=== PATIENT | female | born 1985 | race Two or more races ===

== ENCOUNTER 2016-07-31 17:51 | Outpatient (CLI) | payer MEDICAID ==
[2016-07-31 19:28] VITALS: BMI 27.1
[2016-07-31] MEDS ORDERED: ACETAMINOPHEN 500 MG TABLET PO ONE (19:34)
[2016-07-31 20:07] LABS: PH,URINE 6.5 (5.0-8.0); URINE BILIRUBIN NEGATIVE (NEGATIVE); URINE BLOOD 1+ (NEGATIVE); URINE GLUCOSE (UA) NEGATIVE (NEGATIVE); URINE LEUKOCYTE ESTERASE NEGATIVE (NEGATIVE); URINE NITRITE NEGATIVE (NEGATIVE); URINE PROTEIN NEGATIVE (NEGATIVE); URINE UROBILINOGEN NORMAL (0-1 mg/dl)
[2016-07-31 20:29] LABS: URINE APPEARANCE CLEAR; URINE COLOR YELLOW
[2016-07-31 20:33] LABS: URINE AMORPHOUS SEDIMENT MODERATE; URINE BACTERIA 1+; URINE MUCUS 1+
== END 2016-07-31 20:15 | disposition home or self-care (01) ==
LOC: FBCOUT 17:51 → FBC 17:52 → FBCOUT 20:15
PROVIDERS: ATTEND Family Medicine
DX: O47.9 False labor, unspecified (principal); Z3A.00 Weeks of gestation of pregnancy not specified
CPT/HCPCS: 81001; 59025; 81002; A9270; G0463

== ENCOUNTER 2016-08-01 03:38 | Inpatient (IN) | payer MEDICAID ==
[2016-08-01] MEDS ORDERED: OXYCODONE HCL 5 MG TABLET PO ONE ×2 (03:54→19:49)
[2016-08-01] MEDS ORDERED: IV START KIT ONE (03:57)
[2016-08-01] MEDS ORDERED: LACTATED RINGERS 1,000 ML IV SCH (04:00)
[2016-08-01 04:34] LABS: ABSOLUTE NEUTROPHIL COUNT 8.2 K/mm3 (1.8-7.7); BASO % 0.2 % (0.2-1.0); EOS % 0.3 % (0.9-2.9); HEMATOCRIT 31.6 % (37.0-47.0); HEMOGLOBIN 10.8 gm/l (12.0-16.0); IMM NEUT # 0.1 K/mm3 (0-0.2); IMM NEUT% 1.1 % (0-1); LYMPH # 1.3 (1.0-4.8); LYMPH % 12.5 % (15-45); MEAN CELL VOLUME 91.6 fl (81.0-99.0); MEAN CORPUSCULAR HEMOGLOBIN 31.3 pg (27.0-31.0); MEAN CORPUSCULAR HGB CONC 34.2 g/dl (33.0-37.0); MEAN PLATELET VOLUME 10.9 fl (7.4-10.4); MONO # 0.8 (0.0-0.8); NEUT % 77.9 % (43-75); PLATELET COUNT 212 K/mm3 (130-400); RED CELL DISTRIBUTION WIDTH 13.1 % (11.5-14.5); URINE BILIRUBIN NEGATIVE (NEGATIVE); URINE BLOOD NEGATIVE (NEGATIVE); URINE GLUCOSE (UA) NEGATIVE (NEGATIVE); URINE LEUKOCYTE ESTERASE NEGATIVE (NEGATIVE); URINE NITRITE NEGATIVE (NEGATIVE); URINE PROTEIN NEGATIVE (NEGATIVE); URINE UROBILINOGEN NORMAL (0-1 mg/dl)
[2016-08-01 04:35] LABS: URINE APPEARANCE CLEAR; URINE COLOR YELLOW
[2016-08-01 04:41] LABS: URINE WBC 0-1 /hpf
[2016-08-01 04:42] LABS: URINE BACTERIA TRACE; URINE MUCUS TRACE
[2016-08-01 04:50] LABS: ALB/GLOB RATIO 1.1 (>1.0); ALBUMIN 3.3 gm/dL (3.5-5.7); CALCIUM 8.5 mg/dL (8.6-10.3)
[2016-08-01] MEDS: ONDANSETRON 4 MG/2ML 2 ML VIAL IV PRN (05:29)
[2016-08-01] MEDS: MORPHINE SULFATE 2 MG/ML SYRINGE IV PRN ×2 (05:29→07:35)
[2016-08-01] MEDS: LACTATED RINGERS 1,000 ML IV SCH ×4 (05:37→21:16)
--- NOTE | 2016-08-01 06:09 | PCMAN ---
OB Admission Note - History : 4 Term: 3 : 0 Abortions (S&E): 0 Livin Gestational Age (weeks): 35 Days (#/7): 1 Admit Cervical Dilation:: 1cm Membrane Status: Intact Contractions: Yes Contraction Frequency:: irregular Heart Rate:: 145 Status:: reassuring EFW:: 5 Lbs Summary of Course:: Hx of abnl Quad but cfDNA normal, level 2 u/s wnl except for isolated cardiac foci - Labs Blood Type: O (+) positive Hct/Hgb:: 10.8 Rubella Status: Immune GBS Status: Unknown Abnormal Labs: Abnormal Genetic Screening (07/30/16 UA with blood and trace leuk est) - Review of Systems 12 point ROS negative, except for excruciating right-sided flank pain for 2 days that wraps around the front, nauseous with pain and vomiting - Physical Exam General: Mild Distress Lungs: Clear to Auscultation Bilaterally Cardiovascular: Regular Rate and Rhythm Abdomen: Other (gravid, non-tender back: mild R CVAT) - Problems (1) Flank pain, acute Status: Acute Code: R10.9 Assessment/Plan: 31 yo @ 35 1/7 wks with unremarkable course except for a positive Quad screen followed by normal cfDNA testing and normal level 2 ultrasound exept for isolated finding of cardiac foci who comes in for severe R sided flank pain. She was diagnosed with a UTI 2 days ago in clinic and was given Keflex which she is has mostly taken. Urine culture results are still pending. She is afebrile with a negative WBC count and unremarkable admission labs. GBS was obtained, results are pending. FWB is reassuring and she is not in labor but presents with occasional contractions likely due to pain. Kidney ultrasound was obtained and did not show any kidney stone but moderate right hydronephrosis and a dilated proximal right ureter. -will admit for hydration and pain control with IV morphine and zofran
--- NOTE | 2016-08-01 07:18 | US ---
EXAMINATION: Renal ultrasound including bladder. Technique: A retroperitoneal ultrasound was performed. The kidneys ureters and bladder were evaluated. Prevoid volume postvoid volumes of the bladder were obtained. Clinical indication:Right and see. Right-sided back pain. Comparisons: None FINDINGS: Right kidney: Size: 11.4 x 6.0 x 6.8 centimeters. Cortical thickness: 8 millimeters Resistive index: 0.62 There is moderate right hydronephrosis extending into the proximal right ureter. Pelvic caliectasis is noted as well. There is no adjacent fluid. Left kidney: Size: 11.0 x 5.8 x 6.2 centimeters. Cortical thickness: 9 millimeters Resistive index: 0.62 No mass or hydronephrosis is identified. Echogenicity and contours are normal. Bladder: Empty. Patient voided prior to the exam. No gross distal ureteral dilatation is seen. IMPRESSION: 1. Moderate right hydronephrosis. 2. Sonographically normal left kidney. 3. Decompressed bladder. Findings were communicated by [facility] to the [facility] at: 5:06 AM 08/01/2016
[2016-08-01] MEDS ORDERED: OXYCODONE HCL 5 MG TABLET PO PRN (08:20)
--- NOTE | 2016-08-01 09:41 | PDOC36 ---
Provider Note Subject: MD Interval Note Note: Patient admitted for pain control, R flank pain, US shows moderate R hydronephrosis. Being treated for UTI with Keflex, awaiting culture results. Patient has now received Morphine IV as well as Oxycodone PO x 2. Last dose of Oxycodone 10mg was given 1 hr ago and patient states pain is unchanged, rating 7 /10. Afebrile. No vomiting at this time. No appetite. 31 yo at 35 1/7 wks, R flank pain, pyelonephritis vs kidney stone? - will start Rocephin 1gm IV Q24 hrs - will start Flomax - monitor closely for improved pain, attempting to switch to PO pain meds today.
[2016-08-01] MEDS ORDERED: CEPHALEXIN 500 MG CAPSULE PO SCH (10:00)
[2016-08-01] MEDS ORDERED: CEFTRIAXONE 1 GRAM DUPLEX 50 ML IV ONE (10:13)
[2016-08-01] MEDS: TAMSULOSIN HCL 0.4 MG CAPSULE.DR PO SCH (10:20)
[2016-08-01] MEDS: CEFTRIAXONE 1 GRAM DUPLEX 1 G in Premix (D5W) 50 ml 1 EACH IV SCH (10:22)
[2016-08-01] MEDS: OXYCODONE HCL 5 MG TABLET PO PRN ×2 (11:51→16:22)
[2016-08-01] MEDS: OXYCODONE/ACETAMINOPHEN 5/325 MG TABLET PO PRN ×3 (12:33→21:16)
--- NOTE | 2016-08-01 17:29 | PDOC36 ---
Provider Note Subject: MD Interval Note Note: Patient states pain is still uncontrolled. Receiving Oxycodone 5mg and Percocet 10mg/650 every 4 hours. Has no appetite to eat, c/o nausea when pain is severe. Ucx received and shows 10K col of GBS. Patient switched to Rocephin 1gm IV Q24 and given Flomax today. Remains afebrile. Since pain is still uncontrolled and patient not taking much PO, will keep her overnight. Patient will be moved to Med Surg. Ok for NST Q4 hrs.
[2016-08-01 19:41] VITALS: BMI 27.6
[2016-08-01] MEDS ORDERED: PUMP TUBING ONE (19:51)
[2016-08-02] MEDS: OXYCODONE/ACETAMINOPHEN 5/325 MG TABLET PO PRN ×5 (02:14→23:02)
[2016-08-02] MEDS: LACTATED RINGERS 1,000 ML IV SCH ×7 (02:17→23:03)
[2016-08-02] MEDS: MORPHINE SULFATE 2 MG/ML SYRINGE IV PRN ×4 (05:31→15:17)
[2016-08-02] MEDS: TAMSULOSIN HCL 0.4 MG CAPSULE.DR PO SCH (08:35)
[2016-08-02] MEDS: CEFTRIAXONE 1 GRAM DUPLEX 1 G in Premix (D5W) 50 ml 1 EACH IV SCH (09:54)
[2016-08-02] MEDS: ONDANSETRON 4 MG/2ML 2 ML VIAL IV PRN (10:13)
--- NOTE | 2016-08-02 10:43 | PDOC36 ---
Provider Note Subject: Progress Note Note: Patient reports pain still uncontrolled, taking meds around the clock, sometimes requesting next dose at 3.5 hrs instead of 4. Still with nausea when pain is severe. Not able to eat much. Afebrile. Urine is being strained. Last Vital Signs Temp 98.3 F 08/02/16 07:23 Pulse 106 08/02/16 07:23 Resp 16 08/02/16 07:23 BP 108/64 08/02/16 07:23 Pulse Ox 97 08/02/16 07:23 Patient c/o pain localized to R flank. Unable to lie on that side. NSTs Q4 hrs have been reassuring. A/P: 31 y/o at 35 2/7 wks, uncontrolled flank pain, likely kidney stone - urine is being strained - on Flomax, IVF - Zofran PRN for nausea - will plan to consult [facility] for recommendations.
--- NOTE | 2016-08-02 12:37 | CT ---
Examination: Noncontrast CT scans of the Abdomen and Pelvis Clinical indication: Severe right hydronephrosis. 35 weeks . Comparison: Ultrasound dated 08/01/2016. Technique: Multidetector CT scanner was utilized. No oral or intravenous contrast was administered. Axial images were acquired from just above the domes of the diaphragm to the iliac crest. A CT scan of the pelvis was carried out from the iliac crest to the initial tuberosities. Sagittal, axial and coronal stacked 5 mm images were reviewed. Patient is a Slovak speaker. The risks versus benefits were discussed via japanese interpreter. Consent was obtained. Known . Significant dose reduction techniques were utilized. This may limit resolution. Findings: Abdomen CT (noncontrast): The lung bases are clear and are without mass or pleural effusion. The liver is unremarkable. The gallbladder is within normal limits. There is no evidence of biliary obstruction. The spleen size and attenuation are within normal limits. The pancreas is normal in size and contours. No inflammatory stranding is identified. The pancreatic duct is unremarkable. The adrenals are unremarkable. There is moderate to severe right hydronephrosis and right hydroureter. There are punctate calcifications at the cortical medullary junction in the interpolar distribution of the kidney and at the lower pole. There is severe hydroureter of the proximal aspect with dilatation to the level of the sacral promontory. There is considerable coaptation of the distal right ureter between the uterus and right iliopsoas muscle. The ureter is difficult to track more inferiorly however there is a calculus in the right. Median distribution measuring 0.6 x 0.7 cm in size. This may be intraureteral. There is also moderate left pelvic caliectasis with a prominent proximal left ureter. There is also coaptation of the distal left ureter between the uterus and iliopsoas muscle. No distal left ureteral calculi are identified. No bladder calculi are seen. The abdominal aorta unremarkable. There is no retroperitoneal adenopathy identified. The stomach is unremarkable. The visualized segments of small and large bowel are within normal limits. The osseous structures exhibit no displaced fracture. No lytic or blastic lesions are identified. Pelvic CT findings (noncontrast): The bladder contours are within normal limits. No bladder calculi are identified. There is a gravid uterus. There is a fetus in cephalic presentation. No gross adnexal masses are identified. No adenopathy is identified. The distal abdominal aorta and iliac vessels are within normal limits. The visualized segments of small and large bowel are unremarkable. No inflammatory stranding is seen adjacent to the colon/cecum. The appendix is noninflamed. It is retrocecal and extends cephalad and closely abuts the posterior right kidney adjacent to the right lobe of the liver. The distal tip appears to terminate within the right adrenal fossa. No displaced fractures are identified. There are no gross osteolytic or blastic lesions. The overlying soft tissues are unremarkable. IMPRESSION: 1. Moderate to severe right hydronephrosis. There is perinephric stranding and right nephrolithiasis. There is considerable compression of the distal right ureter between the gravid uterus and right iliopsoas muscle. Distally however there is a suspected intraureteral calculus measuring 0.7 x 0.6 cm. This is just proximal to what appears to be the right ureterovesicular junction. 2. Mild left hydronephrosis and hydroureter. There is also coaptation of the distal left ureter which when a gravid uterus and left ileus psoas muscle. 3. Fetus in cephalic presentation. 4. Noninflamed appendix extending posterior and cephalad as described. The findings were uploaded to the electronic medical record for review at approximately 12:37 PM 08/02/2016
[2016-08-02] MEDS ORDERED: SODIUM CHLORIDE 0.9% FLUSH 10 ML ONE (17:06)
[2016-08-02] MEDS ORDERED: IV START KIT ONE (17:06)
[2016-08-02] MEDS ORDERED: HYDROMORPHONE HCL 2 MG/ML SYRINGE IV PRN (19:10)
--- NOTE | 2016-08-02 19:18 | PDOC36 ---
Provider Note Subject: Progress Note Note: Non contrast CT Abd/Pelvis obtained, shows 7mm x 6 mm calculi proximal to ureterovesicular junction. Discussed findings with Dr. Siegel. He advised to make patient NPO after midnight in preparation for a procedure tomorrow. Will continue Rocephin. Discussed plan with patient this evening and she agrees with plan. Will change IV pain med to Dilaudid as Morphine was not controlling her pain.
[2016-08-03] MEDS: LACTATED RINGERS 1,000 ML IV SCH ×4 (02:40→14:51)
[2016-08-03] MEDS: TAMSULOSIN HCL 0.4 MG CAPSULE.DR PO SCH (08:50)
[2016-08-03] MEDS ORDERED: CEFTRIAXONE SODIUM IV SCH (09:45)
[2016-08-03] MEDS ORDERED: NS 0.9% IV SCH (09:45)
[2016-08-03] MEDS ORDERED: LACTATED RINGERS 1,000 ML ONE (10:48)
[2016-08-03] MEDS ORDERED: FENTANYL 5 ML ONE (11:42)
[2016-08-03] MEDS ORDERED: MIDAZOLAM HCL 1 MG/ML 2ML VIAL ONE (11:42)
[2016-08-03] MEDS ORDERED: IOPAMIDOL 300 (61%) 30 ML SDV ONE (12:16)
[2016-08-03] MEDS ORDERED: SODIUM CHLORIDE 0.9% 50 ML ONE (12:16)
[2016-08-03] MEDS ORDERED: ATROPINE SULFATE 0.4 MG/1 ML VIAL IV PRN (13:16)
[2016-08-03] MEDS ORDERED: ONDANSETRON 4 MG/2ML 2 ML VIAL IV PRN (13:16)
[2016-08-03] MEDS ORDERED: MEPERIDINE 25 MG/ML SYRINGE IV PRN (13:16)
[2016-08-03] MEDS ORDERED: FENTANYL 100 MCG/2 ML VIAL IV PRN (13:16)
[2016-08-03] MEDS ORDERED: NALOXONE HCL 0.4 MG/ML VIAL IV PRN (13:16)
[2016-08-03] MEDS ORDERED: HYDROMORPHONE HCL 1 MG/ML SYRINGE IV PRN (13:16)
[2016-08-03] MEDS ORDERED: SODIUM CHLORIDE 0.9% FLUSH 10 ML ONE (13:19)
[2016-08-03] MEDS ORDERED: PROPOFOL 20 ML IV ONE (13:19)
[2016-08-03] MEDS ORDERED: LIDOCAINE 2% (MULTI DOSE) 10 ML VIAL ONE (13:19)
[2016-08-03] MEDS ORDERED: SUCCINYLCHOLINE CHL 20 MG/ML DOSE ONE (13:19)
[2016-08-03] MEDS ORDERED: EPHEDRINE SULFATE 50 MG/ML 1ML VIAL ONE (13:19)
[2016-08-03] MEDS ORDERED: ROCURONIUM BROMIDE 10 MG/ML DOSE IV ONE (13:19)
[2016-08-03] MEDS ORDERED: LACTATED RINGERS 1,000 ML IV SCH (13:30)
--- NOTE | 2016-08-03 14:14 | RAD ---
RETROGRADE UROGRAM HISTORY: Intraoperative fluoroscopy COMPARISONS: CT abdomen and pelvis 08/02/2016 FINDINGS: 3 overhead fluoroscopic images are provided for review. These images demonstrate retrograde cannulization and opacification of the right ureter. Initial filling image demonstrates filling defect inferior right ureter. Differential considerations would include stone or air bubble. By report stone was removed. Final 2 images demonstrate double ended pigtail catheter within the right collecting system. Fluoroscopy time: 36.6 seconds IMPRESSION: Intraoperative fluoroscopy as above. Please see urologist note regarding the procedure for further details.
--- NOTE | 2016-08-03 14:41 | OP ---
WENDY RICE [id number] DATE OF OPERATION: August 03, 2016 SURGEON: Keaton Siegel M.D. [facility] COORDINATOR: None. ANESTHESIA: General. PREOPERATIVE DIAGNOSES: 1. Right ureteral calculus with renal colic and hydronephrosis. 2. at 35 weeks. POSTOPERATIVE DIAGNOSIS: 1. Right ureteral calculus with renal colic and hydronephrosis. 2. at 35 weeks. PROCEDURE: 1. CYSTOSCOPY. 2. RIGHT RETROGRADE UROGRAPHY. 3. RIGHT URETEROSCOPIC HOLMIUM LASER LITHOTRIPSY. 4. RIGHT URETERAL STENT. SPECIMENS: Fragments of right ureteral calculus. INDICATIONS: A 31-year-old woman at 35 weeks who was admitted by her obstetrical service for right-sided flank pain and abdominal discomfort on August 01, 2016. The flank discomfort persisted and there was no evidence of urinary tract infection. Urinalysis only showed a trace of hematuria. Ultrasound predictably showed some dilatation of the right upper tract which is quite nonspecific at this point in . Because of persistence of pain and need for continuing pain medication, limited CT scan was done and the evidence suggested a distal right ureteral calculus, and she presents now for surgical intervention. FINDINGS: Patient is in advanced . Bladder landry are displaced as predicted by her gravid status. The ureteral orifices were normally disposed. Retrograde on the right showed the stone consistent with a 7 to 8 mm calculus just outside the right intramural ureter with proximal hydroureteronephrosis. The stone fragmented easily, and we were able to remove it in its entirety. PROCEDURE: The patient was identified and brought to the operating room where general anesthesia was induced and then she was placed in a dorsal lithotomy position with the right leg low and the left leg relatively elevated, as well as a right-sided bump to decompress the vena cava. The genital region was prepared and draped sterilely. We introduced a 21 [place] rigid cystoscope and used a cone tip catheter to inject contrast retrograde using fluoroscopy set at low dose. The problem was identified immediately. We then passed a floppy tip wire which we were able to negotiate past the stone to the level of the kidney. The cystoscope was withdrawn and a semi-rigid ureteroscope introduced with saline as an irrigant. A 375 micron holmium laser fiber was used at the rate of 0.8 joules and 10 hertz to fragment the stone with a total energy of 0.078 kilojoules being used. The fragments were removed with an open ended basket. We then removed the ureteroscope and back threaded the wire through the cystoscope and passed a 22 cm 6 [place] Polaris type stent to decompress the ureter. The cystoscope was withdrawn and a temporary 20 [place] Lomas catheter was passed and left to gravity drainage with 10 mL of water in its balloon to observe for hematuria. Estimated blood loss less than 10 mL. No early complications. Patient tolerated the procedure well and was taken in stable condition to the postanesthesia room. cc: Keaton Siegel M.D. Jalil Salgdao PA-C
--- NOTE | 2016-08-03 17:36 | PDOC39B ---
Hospital Course: ADMIT DATE: 08/01/16 DISCHARGE DATE: 08/03/16 ADMISSION DIAGNOSES: Right Flank Pain DISCHARGE DIAGNOSES: Right Sided Ureteral Calculus with Hydronephrosis PROCEDURES/EVENTS: Cystoscopy with retrograde urography Laser Lithotripsy and placement of a right ureteral stent HOSPITAL COURSE: 31 yo admitted @ 35 1/7 weeks with severe right sided flank pain. She was diagnosed with a UTI on 07/30/16 in clinic and was given Keflex which she had mostly taken. Urine culture results were negative. She was afebrile with a negative WBC count and unremarkable admission labs. GBS was obtained, results and is positive. Kidney ultrasound was obtained and did show moderate right hydronephrosis and a dilated proximal right ureter. Dr. Siegel was consulted and a CT without contrast was ordered which showed a 7 mm right sided stone obstructing the ureter causing moderate to severe hydronephrosis. The patient was taken to the cystoscopy suite where the stone was removed via lithotripsy and a temporary stent placed. The patients postoperative course has been unremarkable. well being has been reassuring throughout her stay and at the time of discharge the patient was able to ambulate, eat solid foods and void independently. - Physical Exam Vital Signs: Temp Pulse Resp BP Pulse Ox 98.2 F 90 20 102/60 96 08/03/16 15:00 08/03/16 15:00 08/03/16 15:00 08/03/16 15:00 08/03/16 15:00 General: Afebrile Psych/Mental Status: Mood/Affect Appropriate, Judgment/Insight Intact, Bonding Well Neurological: Alert, Oriented x 4 Lungs: Clear to Auscultation Bilaterally, Normal Air Movement Cardiovascular: Regular Rate and Rhythm Fundus: Other (Gravid) Abdomen: Normal Bowel Sounds Skin: Normal Color - Discharge Diagnosis (1) Term Status: Acute Assessment/Plan: FHTs 150s and reactive. No contractions. SVE: C/T/H Needs to followup with [facility] in 2-3 days. (2) Urolithiasis Status: Acute Assessment/Plan: Stable, patient with a right sided stent after lithotripsy, feeling much better. Followup with Dr. Siegel in 1 week for removal of stent Will send home with pain meds, no ABX required (Urine Culture from clinic was negative) - Discharge Plan Condition: Stable Disposition: Home Prescriptions: Oxycodone HCl/Acetaminophen [PERCOCET 5/325 MG TABLET (SHF)] 2 tab PO Q4H PRN # 30 tablet PRN Reason: Pain Follow-Up: Keaton Siegel MD [Provisional Staff] - (Provider's office will be in contact with you to schedule an appointment) [facility] [Provider Group] - In 2-3 days
[2016-08-03 17:47] VITALS: BP 90/46
[2016-08-04] MEDS ORDERED: CEFTRIAXONE SODIUM 1 G in NS 0.9% (MINI-BAG PLUS) 50 ML IV SCH (10:00)
[2016-08-06 14:39] LABS: CALCULUS NUMBER 3 (()); CALCULUS TOTAL WEIGHT 24 mg (())
== END 2016-08-03 18:30 | disposition home or self-care (01) | DRG 781 ==
LOC: FBCOUT 03:38 → FBC 03:38 → FBCOUT 05:15 → MS 17:25 → OBSVTOIN 17:25 → MS 19:15
PROVIDERS: ADMIT Family Medicine; ATTEND Family Medicine
PROC: BT0B1ZZ Plain Radiography of Bladder and Urethra using Low Osmolar Contrast (ICD-10-PCS; principal; 2016-08-03)
PROC: 0TC33ZZ Extirpation of Matter from Right Kidney Pelvis, Percutaneous Approach (ICD-10-PCS; 2016-08-03)
DX: O26.833 Pregnancy related renal disease, third trimester (principal); N13.6 Pyonephrosis; N39.0 Urinary tract infection, site not specified; N28.89 Other specified disorders of kidney and ureter; O99.820 Streptococcus B carrier state complicating pregnancy; Z3A.35 35 weeks gestation of pregnancy

== ENCOUNTER 2016-08-24 04:19 | Inpatient (IN) | payer MEDICAID ==
[2016-08-24] MEDS ORDERED: OXYTOCIN IN LR 500 ML IV ONE (05:43)
[2016-08-24] MEDS ORDERED: LACTATED RINGERS 1,000 ML IV PRN (05:43)
[2016-08-24] MEDS ORDERED: LIDOCAINE 1% (PRES FREE) 30 ML VIAL ONE (05:47)
[2016-08-24] MEDS ORDERED: IV START KIT ONE (05:47)
[2016-08-24] MEDS ORDERED: OXYTOCIN 10 UNITS/ML VIAL ONE (05:47)
[2016-08-24] MEDS ORDERED: MINERAL OIL 25 ML BOT ONE (05:47)
[2016-08-24] MEDS ORDERED: LIDOCAINE Viscous 2% 15 ML UDCUP ONE (05:47)
[2016-08-24] MEDS ORDERED: PUMP TUBING ONE (05:47)
[2016-08-24] MEDS ORDERED: NS IV ONE (05:49)
[2016-08-24] MEDS ORDERED: PENICILLIN IV ONE (05:49)
[2016-08-24] MEDS ORDERED: PENICILLIN G POTASSIUM 5 MMU VIAL ONE (05:51)
[2016-08-24] MEDS ORDERED: NS 0.9% (MINI-BAG PLUS) 100 ML IV ONE (05:53)
[2016-08-24] MEDS ORDERED: PENICILLIN G POTASSIUM 5 MMU in NS 0.9% (MINI-BAG PLUS) 100 ML IV ONE (06:20)
[2016-08-24 06:29] LABS: HEMATOCRIT 33.8 % (37.0-47.0); HEMOGLOBIN 11.5 gm/l (12.0-16.0); MEAN CELL VOLUME 91.4 fl (81.0-99.0); MEAN CORPUSCULAR HEMOGLOBIN 31.1 pg (27.0-31.0); RED CELL DISTRIBUTION WIDTH 13.1 % (11.5-14.5)
[2016-08-24] MEDS ORDERED: LACTATED RINGERS 1,000 ML IV SCH (06:30)
[2016-08-24 06:40] VITALS: BMI 24.6
[2016-08-24] MEDS ORDERED: LANOLIN 50 APPLIC/7G TUBE TP PRN (08:08)
[2016-08-24] MEDS ORDERED: HYDROCODONE/ACETAMINOPHEN 5/325MG TABLET PO PRN (08:08)
[2016-08-24] MEDS ORDERED: DOCUSATE SODIUM 100 MG CAPSULE PO PRN (08:08)
[2016-08-24] MEDS ORDERED: BENZOCAINE/MENTHOL 60 APPLIC/BOT TP PRN (08:08)
--- NOTE | 2016-08-24 08:31 | PCMAN ---
OB Admission Note - History : 4 Term: 3 : 0 Abortions (S&E): 0 Livin EDC:: 09/04/16 Gestational Age (weeks): 38 Days (#/7): 3 Admit Cervical Dilation:: 5 Admit Cervical Effacement (%):: 100 Admit Station:: -1 Membrane Status: Ruptured Rupture (Date): 08/24/16 Rupture (Time): 02:40 Membranes Comment:: clear Labor Onset (Date): 08/24/16 Labor Onset (Time): 02:40 Contractions: Yes Contraction Frequency:: Q2 mins Summary of Course:: 31 yo (now para 4) at 38 3/7 wk, admitted in active labor after SROM. complicated by renal stone requiring lithotripsy and stent. Patient with no pain after procedure. Also had EIF on anatomy scan and was referred to [facility]. US was unremarkable besides EIF. cfDNA was normal. GBS was positive on Ucx. PMHx: kidney stone PSHx: lithotripsy and stent SocHx: denies tobacco, ETOH or illicit drugs Meds: PNV OBHx: 2011 40 wk (6lb 8oz) 2007 40 wk (7 lb) 2003 40 wk (7 lb 2 oz) - Labs Blood Type: O (+) positive Hct/Hgb:: 35.0/11.6 Rubella Status: Immune GBS Status: Positive Abnormal Labs: None Other Labs:: Antibody neg HIV NR HBSAg NR RPR Neg GC/CT not detected 1hr 112 cfDNA normal Pap normal - Review of Systems Denies CP, SOB, FREEMAN, RUQ pain, no visual changes. Denies pain from kidney stone. 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 Figueroa ) No complications except for inadequate IAP for GBS Admit for routine PP care 48 hr obs for GBS for baby Patient desires BTL but consent was not obtained prior to delivery
--- NOTE | 2016-08-24 08:35 | PCMDEL ---
Delivery Note - Labor 1st stage (hr/min):: 4 hr 48 min 2nd stage (hr/min):: 5 min 3rd stage (hr/min):: 3 min Total (hr/min):: 4 hr 53 min Pushed (hr/min):: 5 min - Delivery Delivery (Date): 08/24/16 Delivery (Time): 07:33 Infant Gender: Male Presentation: Cephalic Position: OA Umbilical Cord: 3 Vessel, Nuchal Cord (reduced on perineum) Delayed Cord Clamping:: < 1 min 1 Minute Total: 9 5 Minute Total: 9 Placenta:: 07:36 EBL:: 100 mL Perineum:: intact Suture:: none Anesthesia/Meds:: none Length ROM:: 4 hr 53 min Comments:: Precipitous of NB male, apgars 9/9, intact perineum. Delivered by Dr. Figueroa. Nuchal cord x 1, reduced on perineum. Infant handed to mom, cord clamped and cut. Cord blood obtained. Placenta delivered and grossly normal. No lacerations. QBL 100 mL.
[2016-08-24] MEDS ORDERED: PENICILLIN IV SCH (10:00)
[2016-08-24] MEDS ORDERED: NS IV SCH (10:00)
[2016-08-24] MEDS ORDERED: PENICILLIN G 3 MIL UNIT PREMIX 3 MMU in Premix (D5W) 50 ml 1 EACH IV SCH (10:00)
[2016-08-24] MEDS: IBUPROFEN 800 MG TABLET PO PRN ×3 (10:28→22:22)
[2016-08-25] MEDS ORDERED: LACTATED RINGERS 1,000 ML ONE (03:51)
[2016-08-25] MEDS ORDERED: LACTATED RINGERS 1,000 ML IV PRN (04:00)
[2016-08-25 06:59] LABS: HEMATOCRIT 30.9 % (37.0-47.0); HEMOGLOBIN 10.1 gm/l (12.0-16.0)
--- NOTE | 2016-08-25 13:40 | PDOC44 ---
- Subjective Day: 1 Reports Pain Tolerable - Objective Temp Pulse Resp BP Pulse Ox 98.1 F 63 16 102/56 08/25/16 07:39 08/25/16 07:39 08/25/16 07:39 08/25/16 07:39 Lab Results 08/25/16 06:10 Hgb 10.1 L Hct 30.9 L Current Medications Generic Name Dose Route Start Last Admin Trade Name Freq PRN Reason Stop Dose Admin Acetaminophen/Hydrocodone Bitart 1 - 2 tab 08/24/16 08:08 08/25/16 02:04 [place] 5/325 PO 1 tab Q4H PRN Administration Pain (Moderate) Benzocaine/Menthol 1 applic 08/24/16 08:08 Dermoplast TP PRN PRN Patient Comfort Docusate Sodium 100 mg 08/24/16 08:08 Colace PO DAILY PRN Comfort Emollient Ointment 1 applic 08/24/16 08:08 Ltg-Y-Pazgxi TP PRN PRN sore nipples Lactated Ringer's 1,000 mls @ 100 mls/hr 08/25/16 04:00 08/25/16 04:00 Lactated Ringers IV 100 mls/hr .Q10H PRN Administration npo Ibuprofen 800 mg 08/24/16 08:08 08/24/16 22:22 Motrin PO 800 mg Q6H PRN Administration Pain (Mild) Sodium Chloride 10 ml 08/24/16 05:43 08/24/16 07:15 Normal Saline 10ml Flush IV 10 ml PRN PRN Administration IV Flush Sodium Chloride 10 ml 08/24/16 09:00 08/25/16 06:38 Normal Saline 10ml Flush IV Not Given Q8HR JUANA - Physical Exam General: Afebrile Psych/Mental Status: Mood/Affect Appropriate, Judgment/Insight Intact, Bonding Well Neurological: Grossly Intact Lungs: Clear to Auscultation Bilaterally Cardiovascular: Regular Rate and Rhythm Fundus: Firm, Below Umbilicus Skin: Normal Color - Problems:Assessment/Plan (1) GBS carrier Status: Acute Assessment/Plan: Only received one dose of PCN prior to delivery Will keep baby for 48 hr obs (2) (normal spontaneous vaginal delivery) Status: Acute Assessment/Plan: Patient came in in active labor, and went on to have a rapid (by Dr. Figueroa ) No complications except for inadequate IAP for GBS Continue routine PP care 48 hr obs for GBS for baby Patient desires BTL but consent was not obtained prior to delivery, continue to wait for clearance. Pt may be able to have BTL tomorrow in AM but doubt it. Christine Raza with Finance Dept is continuing to work on this and will let us know. Disposition: Stable
[2016-08-25] MEDS: IBUPROFEN 800 MG TABLET PO PRN (18:13)
[2016-08-26] MEDS: IBUPROFEN 800 MG TABLET PO PRN (03:18)
[2016-08-26] MEDS ORDERED: MORPHINE SULFATE 2 MG/ML SYRINGE IV PRN (05:13)
[2016-08-26] MEDS ORDERED: LACTATED RINGERS 1,000 ML IV SCH (05:15)
[2016-08-26 06:55] LABS: HEMATOCRIT 31.6 % (37.0-47.0); HEMOGLOBIN 10.6 gm/l (12.0-16.0); MEAN CELL VOLUME 91.3 fl (81.0-99.0); MEAN CORPUSCULAR HEMOGLOBIN 30.6 pg (27.0-31.0); MEAN CORPUSCULAR HGB CONC 33.5 g/dl (33.0-37.0); RED CELL DISTRIBUTION WIDTH 13.5 % (11.5-14.5)
--- NOTE | 2016-08-26 10:38 | PDOC36 ---
Provider Note Note: cc: Preop H&P HPI: 31 y.o. year old G4 now [id number] PPD#2 here for a PP BTL REVIEW OF SYSTEMS GENERAL:~ No fever or headache EYES:~ No double or blurry vision. CARDIOVASCULAR:~ No chest pain. RESPIRATORY:~ No severe shortness of breath or cough. GASTROINTESTINAL:~ No nausea or vomiting or right upper quadrant pain.~ PSYCHIATRIC:~ No anxiety or depression. PROBLEMS H/O Kidney stones requiring Lithotripsy and Stent during PSH Past Surgical History Procedure Laterality Date Cystoscopy w/ laser lithotripsy Right 08/03/16 [facility], Keaton Siegel MD Cystoscopy w/ ureteral stent placement Right 08/03/16 [facility], Keaton Siegel MD SOC HX Reports that she has never smoked. She has never used smokeless tobacco. She reports that she does not drink alcohol or use illicit drugs. ALL No Known Allergies MEDICATIONS ~ multivitamin (ULTRATABS) tablet, Take 1 tablet by mouth daily., Disp : 30 each, Rfl: 0 PHYSICAL EXAMINATION VITAL SIGNS:~ AFVSS Estimated body mass index is 27.24 GENERAL:~ No distress CARDIOVASCULAR:~ Regular rate and rhythm, no murmur, JVD or pedal edema. RESPIRATORY:~ Clear to auscultation bilaterally, respiratory effort is nonlabored at rest. GASTROINTESTINAL:~ Fundus is firm and at umbilicus NEUROLOGIC:~ Deep tendon reflexes are 2+ in the knees.~ Cranial nerves II-XII are grossly intact. PSYCHIATRIC:~ Alert and oriented x3, judgement and memory is intact, mood is pleasant. LABS & STUDIES Hgb 10.6 ASSESSMENT 31 y.o. year old here for BTL PLAN I reviewed the risks and benefits of, and alternatives to, a bilateral tubal ligation (BTL). She understands that this is considered permanent sterilization , and that equally effective but reversible methods exist. These methods have previously been discussed with her. She understands that a BTL is not 100% effective. There is a failure risk of approximately 1-3% over 10 years. She understands that if she becomes after a BTL she is at an increased risk of having an ectopic, or tubal , which can be dangerous and even deadly. I reviewed the importance of taking a test should she have any future signs or symptoms of . I also reviewed the age-related risk of regret (approximately 20% for women under age 30, or 6% for those 30 or older). Further, we discussed the surgical risks including risk of bleeding ( she states that she would accept blood products if medically necessary; we reviewed R/B), risk of infection (wound infection - possibly leading to dehiscence, or pelvic infection), as well as risk of damage to surrounding organs/tissues (including, but not limited to, bladder, bowel, ureters, uterus, ovaries, tubes, blood vessels and nerves). We reviewed that any of these surgical risks could necessitate further treatment or surgeries. She understands that there is a risk of conversion to laparotomy. She voices understanding and wishes to proceed. All questions were answered. The patient provided verbal and written consent. Fer Ramesh MD MPH
[2016-08-26] MEDS ORDERED: SPINAL PROCEDURAL TRAY 1 EACH ONE (10:39)
[2016-08-26] MEDS ORDERED: BUPIVACAINE 0.75% SPINAL AMPUL 2 ML ONE (11:07)
[2016-08-26] MEDS ORDERED: BENZOCAINE/MENTHOL 60 APPLIC/BOT TP PRN (12:18)
[2016-08-26] MEDS ORDERED: MAGNESIUM HYDROXIDE 30 ML UDCUP PO PRN (12:18)
[2016-08-26] MEDS ORDERED: HYDROCODONE/ACETAMINOPHEN 5/325MG TABLET PO PRN (12:18)
[2016-08-26] MEDS ORDERED: LANOLIN 50 APPLIC/7G TUBE TP PRN (12:18)
[2016-08-26] MEDS ORDERED: DOCUSATE SODIUM 100 MG CAPSULE PO PRN (12:18)
[2016-08-26] MEDS ORDERED: ACETAMINOPHEN 325 MG TABLET PO PRN (12:18)
[2016-08-26] MEDS ORDERED: SENNOSIDES 8.6 MG TABLET PO PRN (12:18)
--- NOTE | 2016-08-26 12:18 | PCMBTL ---
Note:: DATE OF PROCEDURE 08/26/16 PREOPERATIVE DIAGNOSES Desires Sterilization POSTOPERATIVE DIAGNOSES Same PROCEDURE [facility] SURGEON Fer Ramesh MD ANESTHESIA Spinal COMPLICATIONS None ESTIMATED BLOOD LOSS 5 Ml URINE OUTPUT 150 mL IV FLUIDS 900 mL START TIME 1128 IMPLANTS None SPECIMENS Right and Left Fallopian Tube Segments FINDINGS Normal bilateral fallopian tubes OPERATIVE NOTE After ensuring informed consent, the patient was taken to the OR where epidural anesthesia was ensured without complications. She was prepped and draped in the usual sterile fashion. Anesthesia was found to be adequate. A small transverse infraumbilical skin incision was made. Maria Del Rosario clamps were used to bluntly dissect down to the underlying level of fascia which was tented up and entered sharply with the scalpel. An Elliot was inserted. The left Fallopian tube was identified, grasped with the Jose clamps, and followed out distally until the fimbriae were identified. An avascular midsection of the tube was then created with the bovie. The tube was doubly ligated with 0 plain sutures and transected. The speciman was sent to pathology. Excellent hemostasis was noted and the tube was returned to the abdomen. The same procedure was performed on the right Fallopian tube. Again, excellent hemostasis was noted. The Elliot was removed. The fascia was then closed with 2-0 Vicryl in a single layer. The subcutaneous layer was then closed with 2-0 Vicryl. The skin was closed with 4- 0 Monocryl in a subcuticular fashion. The patient tolerated the procedure well. Sponge and needle counts were correct times two. The patient was taken to the recovery room in stable condition. .
[2016-08-26] MEDS ORDERED: FENTANYL 100 MCG/2 ML VIAL ONE (12:32)
[2016-08-26] MEDS: IBUPROFEN 600 MG TABLET PO PRN ×2 (13:47→19:54)
[2016-08-26] MEDS: OXYCODONE HCL 5 MG TABLET PO PRN ×3 (13:47→19:53)
--- NOTE | 2016-08-26 16:41 | PDOC39B ---
Hospital Course: ADMIT DATE: 08/24/16 DISCHARGE DATE: 08/26/16 ADMISSION DIAGNOSES: IUP at term Undesired ferility PROCEDURES: PP BTL HISTORY OF PRESENT ILLNESS: 31 year old G4 T3 L3 at 38 weeks 3 days presenting with SROM and [facility] HOSPITAL COURSE: The patient was admitted in active labor after SROM. Progressed to complete and had uncomplicated . Had undesired ferility and desired permanent sterilization. Underwent PP BTL on PPD#2, tolerated well. By day of discharge the patient is ambulating, eating, voiding, and passing flatus without difficulty. Pain is controlled and lochia is appropriate. She is . - Physical Exam Vital Signs: Temp Pulse Resp BP Pulse Ox 97.9 F 60 16 102/56 99 08/26/16 13:55 08/26/16 13:55 08/26/16 13:55 08/26/16 13:55 08/26/16 13:55 General: Afebrile, No Acute Distress Psych/Mental Status: Mood/Affect Appropriate, Judgment/Insight Intact, Bonding Well Neurological: Grossly Intact, Alert, Normal Speech HEENT: Atraumatic, Mucous membr. moist/pink Lungs: Clear to Auscultation Bilaterally Cardiovascular: Regular Rate and Rhythm Breast: Soft Fundus: Firm, Midline, Below Umbilicus Skin: Normal Color, Warm, Dry, Intact, No Rash Wound: Dressing in Place - Discharge Diagnosis (1) (normal spontaneous vaginal delivery) Status: Acute Assessment/Plan: Patient came in in active labor, and went on to have a rapid (by Dr. Figueroa ) No complications except for inadequate IAP for GBS Uncomplicated PP course DC home after able to ambulate, void and take POs PP precautions given Pelvic rest x 6 wks (2) Unwanted fertility Status: Acute Assessment/Plan: s/p BTL Doing well When fully recovered from epidural and able to ambulate, void and take POs may DC home. - Discharge Plan Condition: Good Disposition: Home Instruction Forms: Vaginal Discharge Instructions Prescriptions: Docusate Sodium [COLACE 100 MG CAPSULE ([facility])] 100 mg PO DAILY PRN #60 capsule PRN Reason: Comfort Benzocaine/Menthol [DERMOPLAST SPRAY ([facility])] 1 applic TP PRN PRN #1 bot PRN Reason: Patient Comfort Ibuprofen [IBUPROFEN 800 MG TABLET ([facility])] 800 mg PO Q6H PRN #50 tablet PRN Reason: Pain (Mild) Lanolin [LANOLIN 7 G TUBE ([facility])] 1 applic TP PRN PRN #1 tube PRN Reason: Sore Nipples Oxycodone HCl/Acetaminophen [PERCOCET 5/325 MG TABLET ([facility])] 1 - 2 tab PO Q4H PRN #40 tab PRN Reason: severe pain Follow-Up: Mira Torres PA-C [Primary Care Provider] - 08/28/16 (clinic to call to schedule, but if has not by shi, please call in AM to sched for appt on Wed. )
[2016-08-26 21:47] VITALS: BP 111/58
[2016-08-27] MEDS ORDERED: LACTATED RINGERS 1,000 ML ONE (02:35)
--- NOTE | 2016-08-28 13:00 | SURGPATH ---
[facility] [address] [place] [id number] Patient Name: WENDY RICE MR#: [id number] : 1985 Gender: F Specimen #: [id number] Collected: 08/26/2016 Received: 08/27/2016 Reported: 08/28/2016 Submitting Phys: CUONG HOFFMAN Copy To Phys: [facility] ERICK CHRISTIAN Clinical History / Pre-Operative Diagnosis: ELECTIVE STERILIZATION Specimen Source / Surgical Procedure Performed: SEGMENT OF RIGHT FALLOPIAN TUBE (WITH STITCH), SEGMENT OF LEFT FALLOPIAN TUBE- BILATERAL TUBAL LIGATION Interpretation: FALLOPIAN TUBES, RIGHT AND LEFT, BILATERAL TUBAL LIGATION: - NORMAL FALLOPIAN TUBES SEEN IN COMPLETE CROSS SECTION Electronically Signed Out Lisa Coffey M.D. Gross Description: The specimen is received in a formalin filled container labeled with the patient's name and "right and left fallopian tube". Two cylindrical segments of jauregui tissue are 0.6 x 0.4 cm and 1.2 x 0.4 cm. The longer segment has an attached suture and is inked black. A b2b sales representative cross-section of each is submitted in one cassette. Arya Villatoro PJordan Microscopic Description: Both fallopian tubes are histologically unremarkable and seen in complete cross section. 1: [id number] Z30.2
== END 2016-08-26 21:04 | disposition home or self-care (01) | DRG 767 ==
LOC: FBCOUT 04:19 → FBC 04:19 → FBCOUT 05:41
PROVIDERS: ADMIT Family Medicine; ATTEND Family Medicine
PROC: 10E0XZZ Delivery of Products of Conception, External Approach (ICD-10-PCS; principal; 2016-08-24)
PROC: 0UL70ZZ Occlusion of Bilateral Fallopian Tubes, Open Approach (ICD-10-PCS; 2016-08-26)
DX: O26.833 Pregnancy related renal disease, third trimester (principal); N28.9 Disorder of kidney and ureter, unspecified; N20.0 Calculus of kidney; O99.824 Streptococcus B carrier state complicating childbirth; O69.81X0 Labor and delivery complicated by cord around neck, without compression, not applicable or unspecified; Z3A.38 38 weeks gestation of pregnancy; Z37.0 Single live birth; Z30.2 Encounter for sterilization